=== PATIENT | female | born 1960 | race Caucasian/White ===

== ENCOUNTER → 2024-07-05 16:02 | Outpatient (REF) | payer BC, SELFPAY | LOC: WDC 16:02 | PROVIDERS: ATTENDING PHYSICIAN Family Medicine | DX: Z12.31 Encounter for screening mammogram for malignant neoplasm of breast (principal) | CPT/HCPCS: 77063; 77067 ==

== ENCOUNTER 2025-05-21 13:51 | Emergency (ER) | payer BC, SELFPAY ==
[2025-05-21 13:52] VITALS: BP 141/91
[2025-05-21 14:19] LABS: Hematocrit 40.7 % (37.0-47.0); Hemoglobin 13.3 g/dL (12.0-16.0); Mean Corp Hgb Conc. 32.7 g/dL (33.0-37.0); Mean Corpuscular Volume 89.8 fL (81.0-99.0); Nucleated Red Blood Cells % 0 %; Platelet Count 268 10^3/uL (130-400); Red Cell Dist. Width 13.3 % (11.5-14.5)
[2025-05-21 14:40] LABS: ALT (SGPT) 30 U/L (0-35); AST (SGOT) 30 U/L (14-36); Albumin 4.7 g/dl (3.5-5.0); Alkaline Phosphatase 105 U/L (38-126); Blood Urea Nitrogen 13 mg/dl (7-17); Calcium 9.3 mg/dl (8.4-10.2); Carbon Dioxide 28 mmol/L (22-30); Chloride 106 mmol/L (98-107); Glucose 103 mg/dl (70-99); Potassium 4.6 mmol/L (3.5-5.1); Sodium 141 mmol/L (135-145); Total Protein 8.2 g/dl (6.3-8.2); eGFR > 60.00
[2025-05-21 16:00] VITALS: BP 132/80
--- NOTE | 2025-05-21 16:04 | ED.GENMED ---
History of Present Illness
General
Chief Complaint: Abdominal Symptoms
Source: patient
Exam Limitations: none
Time Seen by Provider: 05/21/25 15:50
Nursing documentation reviewed up to this point in time: agreed with
History of Present Illness
History of Present Illness:
Patient to ED [facility] complaint of abdominal cramping and diarrhea x 1 week. Took a total of 4 doses of immodium on Thursday without improvement. States she was on augmentin approx 1 mos and developed similar symptoms. States after completing course,
symptoms slowly resolved. Thursday cramping and diarrhea returned. States she felt feverish on thursday but not since. Denies any n/v. Brought to ED by spouse for eval.
Past History
Past History
ED Past Medical History: GERD and Hypothyroidism
ED Past Surgical History: None
Social History
Tobacco: Non-smoker
Alcohol: Occasional
Drug: None
Personal:
Living: with family
Review of Systems
Review of Systems
Allergies reviewed?: Yes
All Other Systems: ROS reviewed and negative except as documented in HPI and ROS
Constitutional: Reports no symptoms
EENT: Reports no symptoms
Respiratory: Reports no symptoms
Cardiac: Reports no symptoms
ABD/GI: Reports abdominal pain (abdominal cramping and diarrhea) and diarrhea
: Reports no symptoms
Musculoskeletal: Reports no symptoms
Skin: Reports no symptoms
Neurological: Reports no symptoms
Psychiatric: Reports no symptoms
Phy Exam
General Physical Exam
General Presentation: mild distress
General age: appears stated age
General Skin: warm and dry
General Habitus: normal
General Mental: alert
Cardiovascular Exam
Cardiovascular Exam: regular rate/rhythm and no edema
Gastrointestinal Exam
Gastrointestinal Exam: normal bowel sounds, non tender, soft, no organomegaly, non distended, no cva tenderness and other (reports cramping, no pain to palpation.)
Musculoskeletal Exam
Musculoskeletal Exam: full ROM and neuro vasc intact
Skin Exam
Skin Exam: normal color, warm/dry and no rash
Psychiatric Exam
Psychiatric Exam: normal mood/affect
Course
Orders/Labs/Results
Orders:
Orders
05/21/25 14:06
Complete Blood Count/With Diff Urgent
Comprehensive Metabolic Panel Urgent
Lipase Urgent
Comment: ADD ON
05/21/25 15:59
Add On- LAB Urgent
Tests Added?: lipase
CT Abd/pel W Iv And Oral Contr Urgent
Comment:
Reason For Exam: abdominal cramping, diarrhea x 1 week.
0.9% Sodium Chloride 1000 ml [Nss] 1,000 ml IV BOLUS
Iohexol [Omnipaque] See Protocol PO NOW STA
05/21/25 16:41
STOOL [C difficile Antigen & Toxins] Urgent
SHAINA Source: Feces/Stool
Specimen Description:
Date Specimen was Collected: 05/21/25
Time Specimen was Collected: 16:35
Stool Culture Urgent
SHAINA Source: Feces/Stool
Specimen Description:
Date Specimen was Collected: 05/21/25
Time Specimen was Collected: 16:40
05/21/25 18:25
Urinalysis Reflex To Culture Urgent
Date Specimen was Collected: 05/21/25
Time Specimen was Collected: 18:24
05/21/25 19:35
Dicyclomine [Bentyl] 10 mg PO NOW STA
Abnormal Lab Results
05/21/25
14:06
MCHC 32.7 L g/dL
(33.0-37.0)
MPV 10.9 H fL
(7.4-10.4)
Glucose 103 H mg/dl
(70-99)
05/21/25 14:06
05/21/25 14:06
Vital Signs
Initial and Last Documented VS:
Initial Vital Signs
Temp Pulse Resp BP Pulse Ox
98.6 F 82 16 141/91 97
05/21/25 13:52 05/21/25 13:52 05/21/25 13:52 05/21/25 13:52 05/21/25 13:52
Last Documented Vital Signs
Temp Pulse Resp BP Pulse Ox
98.6 F 71 16 127/79 97
05/21/25 13:52 05/21/25 18:00 05/21/25 13:52 05/21/25 18:00 05/21/25 16:07
*Radiology
Radiology exam reviewed: radiology read reviewed
*Pulse Oximetry
SaO2: 97
Oxygen Mode of Delivery: Room air
Patient hypoxic: no
*Critical Care Note
Total Time (30-74mins, 75-104mins- exclusive of procedures): Not Applicable
Update Note
Update Note:
Patient to ED wtih complaint of lower abdominal cramping and diarrhea x 1 week. VSS, she remains afebrile. Labs reviewed, WBCnormal, CMP normal. No evidence of UTI. CT neg for acute findings. Will place on bently for her abd cramping. Stool
cultures are pending. SHe is discharge home and will follow up with PCP. Given instructions ons/s to return to ED and she is agareeable to plan
ED Attending Note
-
Portions of this chart may have been created with voice recognition software.� Occasional wrong word or��sound alike� substitutions may have occurred due to the inherent limitations of voice recognition software.
Discharge Plan
Departure
Patient Disposition: Home (Routine Discharge)
Date of Disposition: 05/21/25
Time of Disposition: 19:36
Patient with high blood pressure during this ER visit?: No
Condition: Good
Covid-19: Not Applicable
Discharge Problem:
Abdominal cramping, Diarrhea
Instructions: Diarrhea in teens and adults, Abdominal Pain
Prescriptions:
New
dicyclomine 10 mg capsule
10 mg PO TID PRN (Reason: abdominal pain) Qty: 30 0RF
No Action
Synthroid:
1 tab PO DAILY
Zoloft:
1 tab PO DAILY
norethindrone acetate [Aygestin] 5 MG tablet
5 mg PO Daily Qty: 7 0RF
pantoprazole 40 MG tablet,delayed release (DR/EC)
40 mg PO DAILY Qty: 10 0RF
Referrals:
Hoda Snider MD [Family Provider, Family Practice]
Activity Restrictions/Additional Instructions:
Return to the emergency department immediately for any changes in/worsening of your symptoms.
Interventions
Interventions:
*Risk Screen - Suicide Last Done: 05/21/25 13:52
*General Assessment Last Done: 05/21/25 16:19
*Neglect/Abuse Screening Last Done: 05/21/25 13:52
*ED- Fall Risk Assessment Last Done: 05/21/25 16:18
*ED COVID-19 Vaccine History Last Done: 05/21/25 16:18
*Nursing Disposition Last Done: 05/21/25 20:45
[facility] Assessment Last Done: 05/21/25 17:00
Discharge Date and Time
Discharge Date/Time: 05/21/25 19:45
Print Language: LAO
[2025-05-21 16:18] VITALS: BMI 28.8
[2025-05-21] MEDS: OMNIPAQUE 50 ML PO (16:21)
[2025-05-21] MEDS: NSS 1000 IV (16:21)
[2025-05-21 16:32] LABS: Lipase 91 U/L (23-300)
[2025-05-21 18:00] VITALS: BP 127/79
[2025-05-21 18:32] LABS: Urine Character Clear (Clear)
[2025-05-21] MEDS: BENTYL 10 MG PO (19:55)
== END 2025-05-21 19:45 | disposition home or self-care (01) ==
LOC: EMR 13:51
PROVIDERS: Emergency Medicine; Nurse Practitioner; EMERGENCY PHYSICIAN Emergency Medicine; FAMILY PHYSICIAN Family Medicine
DX: R10.9 Unspecified abdominal pain (principal); R19.7 Diarrhea, unspecified; K21.9 Gastro-esophageal reflux disease without esophagitis; E03.9 Hypothyroidism, unspecified
CPT/HCPCS: 99284; 96360; 74177; 80053; 81003; 83690; 85025; 87045; 87046; 87324; 87427; 87449; Q9967

== ENCOUNTER → 2025-08-22 17:00 | Outpatient (REF) | payer BC, SELFPAY | LOC: WDC 17:00 | PROVIDERS: ATTENDING PHYSICIAN Family Medicine | DX: Z12.31 Encounter for screening mammogram for malignant neoplasm of breast (principal) | CPT/HCPCS: 77063; 77067 ==